=== PATIENT | female | born 1970 | race African-American/Black ===

== ENCOUNTER 2017-06-27 22:52 | Emergency (ER) | payer SELFPAY ==
[~2017-06-27] VITALS: Ht 167.6 cm; Wt 65.0 kg
[2017-06-28 03:15] LABS: BASOPHILS % 0.5 % (0.0-2.0); HEMATOCRIT. 36.4 % (36.0-48.0); HEMOGLOBIN. 12.6 g/dL (12.0-16.0); LYMPHOCYTES % 57.9 % (20.0-50.0); MEAN CORPUSCULAR HEMOGLOBIN 32.3 pg (28.0-32.0); MEAN CORPUSCULAR VOLUME 93.8 fL (81.0-99.0); MEAN PLATELET VOLUME 6.6 fl (7.4-10.4); MONOCYTES % 7.7 % (2.0-8.0); NEUTROPHILS % 32.9 % (40.0-76.0); PLATELET 341 x1000/uL (130-400); RED BLOOD CELL COUNT 3.88 mill/uL (4.2-5.4); RED CELL DISTRIBUTION WIDTH 13.4 % (11.6-14.6)
[2017-06-28 03:31] LABS: CARBON DIOXIDE 28 mEq/L (21-32); CHLORIDE 108 mEq/L (98-107)
[2017-06-28] MEDS: SODIUM CHLORIDE 0.9% 1,000 ML IV ONE (05:40)
[2017-06-28] MEDS: ONDANSETRON HCL 4MG/2ML VIAL IV STA (05:42)
[2017-06-28] MEDS: MORPHINE SULFATE 4 MG/ML CPJ (NOT FOR IM USE) IV STA (05:43)
[2017-06-28] MEDS: KETOROLAC 60MG/2ML VIAL IM ONE (05:48)
[2017-06-28 06:20] LABS: CLARITY URINE TURBID (CLEAR); COLOR URINE YELLOW (YELLOW); GLUCOSE URINE NEGATIVE (NEGATIVE); KETONES URINE NEGATIVE (NEGATIVE); LEUKOCYTE ESTERASE URINE 1+ (NEGATIVE); NITRITE URINE NEGATIVE (NEGATIVE); OCCULT BLOOD URINE NEGATIVE (NEGATIVE); PH URINE 5.5 (4.5-8.0); PROTEIN URINE TRACE (NEGATIVE); SPECIFIC GRAVITY URINE 1.023 (1.005-1.030)
[2017-06-28 07:06] VITALS: BP 115/61
== END 2017-06-28 07:20 | disposition home or self-care (01) ==
LOC: ER 23:01
DX: R10.2 Pelvic and perineal pain (principal); I10 Essential (primary) hypertension; F12.10 Cannabis abuse, uncomplicated; F17.200 Nicotine dependence, unspecified, uncomplicated; R11.2 Nausea with vomiting, unspecified
CPT/HCPCS: 36415; 76856; 80053; 81001; 81025; 83690; 85025; 96361; 96372; 96374; 96375; 99285; J1885; J2270; J2405; J7040; Z7610; J7030

== ENCOUNTER 2018-03-17 14:30 | Emergency (ER) | payer MEDICAID ==
[~2018-03-17] VITALS: Ht 160 cm; Wt 60.0 kg
[2018-03-17 16:26] VITALS: BP 128/98
== END 2018-03-17 16:27 | disposition home or self-care (01) ==
LOC: ER 14:30
DX: I10 Essential (primary) hypertension (principal); Z76.0 Encounter for issue of repeat prescription; F32.9 Major depressive disorder, single episode, unspecified; F12.10 Cannabis abuse, uncomplicated
CPT/HCPCS: 99283

== ENCOUNTER 2018-09-12 14:09 | Emergency (ER) | payer MEDICAID ==
[~2018-09-12] VITALS: Ht 162.6 cm; Wt 60.0 kg
[2018-09-12 15:09] LABS: CLARITY URINE CLEAR (CLEAR); COLOR URINE YELLOW (YELLOW); KETONES URINE NEGATIVE (NEGATIVE); LEUKOCYTE ESTERASE URINE NEGATIVE (NEGATIVE); NITRITE URINE NEGATIVE (NEGATIVE); OCCULT BLOOD URINE NEGATIVE (NEGATIVE); PH URINE 6.5 (4.5-8.0); PROTEIN URINE NEGATIVE (NEGATIVE); SPECIFIC GRAVITY URINE 1.001 (1.005-1.030); UROBILINOGEN URINE 0.2 E.U./dL (0.2-1.0)
[2018-09-12 15:24] LABS: *AMPHETAMINES SCREEN URINE NEGATIVE (NEGATIVE); *BARBITURATES SCREEN URINE NEGATIVE (NEGATIVE); METHADONE URINE SCREEN NEGATIVE (NEGATIVE); OPIATES URINE SCREEN NEGATIVE (NEGATIVE)
[2018-09-12 15:25] LABS: *BENZODIAZEPINES SCREEN URINE NEGATIVE (NEGATIVE); *COCAINE SCREEN URINE PRESUMTIVE POSITIVE (NEGATIVE); CANNABINOID URINE SCREEN NEGATIVE (NEGATIVE); PHENCYCLIDINE URINE SCREEN NEGATIVE (NEGATIVE)
[2018-09-12 16:02] LABS: BASOPHILS % 0.3 % (0.0-2.0); EOSINOPHILS % 0.1 % (0.0-5.0); HEMATOCRIT. 36.9 % (36.0-48.0); HEMOGLOBIN. 12.5 g/dL (12.0-16.0); LYMPHOCYTES % 16.5 % (20.0-50.0); MEAN CORPUSCULAR HEMOGLOBIN 32.7 pg (28.0-32.0); MEAN CORPUSCULAR VOLUME 96.9 fL (81.0-99.0); MEAN PLATELET VOLUME 7.8 fl (7.4-10.4); MONOCYTES % 7.8 % (2.0-8.0); NEUTROPHILS % 75.3 % (40.0-76.0); PLATELET 304 x1000/uL (130-400); RED BLOOD CELL COUNT 3.81 mill/uL (4.2-5.4); RED CELL DISTRIBUTION WIDTH 13.7 % (11.6-14.6)
[2018-09-12 16:08] LABS: PROTHROMBIN TIME 10.1 sec (9.1-11.1)
[2018-09-12 16:12] LABS: CHLORIDE 106 mEq/L (98-107)
[2018-09-12] MEDS ORDERED: ACETAMINOPHEN 325MG TABLET PO ONE (16:15)
[2018-09-12 16:21] LABS: ETHANOL BLOOD 250 mg/dL
[2018-09-12 18:32] VITALS: BP 118/72
== END 2018-09-12 19:24 | disposition home or self-care (01) ==
LOC: ER 14:30
DX: F10.229 Alcohol dependence with intoxication, unspecified (principal); F32.9 Major depressive disorder, single episode, unspecified; I10 Essential (primary) hypertension; F12.10 Cannabis abuse, uncomplicated; Y90.8 Blood alcohol level of 240 mg/100 ml or more
CPT/HCPCS: 36415; 70450; 73130; 80053; 80305; 81003; 81025; 85025; 85610; 93005; 99284; G0482

== ENCOUNTER 2019-07-07 18:37 | Emergency (ER) | payer MEDICAID ==
[~2019-07-07] VITALS: Ht 172.7 cm; Wt 65.0 kg
[2019-07-07 23:15] LABS: BASOPHILS % 0.6 % (0.0-2.0); HEMATOCRIT. 35.8 % (36.0-48.0); HEMOGLOBIN. 12.1 g/dL (12.0-16.0); LYMPHOCYTES % 37.2 % (20.0-50.0); MEAN CORPUSCULAR HEMOGLOBIN 32.5 pg (28.0-32.0); MEAN CORPUSCULAR VOLUME 96.7 fL (81.0-99.0); MEAN PLATELET VOLUME 7.8 fl (7.4-10.4); MONOCYTES % 7.8 % (2.0-8.0); NEUTROPHILS % 53.4 % (40.0-76.0); PLATELET 272 x1000/uL (130-400); RED BLOOD CELL COUNT 3.71 mill/uL (4.2-5.4); RED CELL DISTRIBUTION WIDTH 12.9 % (11.6-14.6)
[2019-07-07 23:18] LABS: CHLORIDE 106 mEq/L (98-107)
[2019-07-08 04:04] VITALS: BP 100/68
== END 2019-07-08 04:30 | disposition home or self-care (01) ==
LOC: ER 18:37
DX: M94.0 Chondrocostal junction syndrome [Tietze] (principal); I10 Essential (primary) hypertension; F32.9 Major depressive disorder, single episode, unspecified; F12.10 Cannabis abuse, uncomplicated
CPT/HCPCS: 36415; 71045; 80053; 83690; 84484; 85025; 93005; 99284; Z7610

== ENCOUNTER 2019-07-08 06:37 | Emergency (ER) | payer MEDICAID ==
[~2019-07-08] VITALS: Ht 170.2 cm; Wt 65.0 kg
[2019-07-08] MEDS ORDERED: KETOROLAC 60MG/2ML VIAL IM ONE (07:45)
[2019-07-08 12:20] VITALS: BP 115/62
== END 2019-07-08 12:53 | disposition home or self-care (01) ==
LOC: ER 06:37
DX: M79.601 Pain in right arm (principal); Z59.0 Homelessness
CPT/HCPCS: 96372; 99283; J1885

== ENCOUNTER 2020-10-21 02:30 | Inpatient (IN) | payer MEDICAID ==
[~2020-10-21] VITALS: Ht 167.6 cm; Wt 71.7 kg
[2020-10-21] MEDS ORDERED: ASPIRIN 81MG TABLET PO ONE (04:00)
[2020-10-21] MEDS ORDERED: NITROGLYCERIN OINT 1GM/INCH UDPKT TD ONE (04:00)
[2020-10-21 05:17] LABS: BASOPHILS % 0.6 % (0.0-2.0); EOSINOPHILS % 0.3 % (0.0-5.0); HEMOGLOBIN. 15.1 g/dL (12.0-16.0); LYMPHOCYTES % 33.1 % (20.0-50.0); MEAN CORPUSCULAR HEMOGLOBIN 30.9 pg (28.0-32.0); MEAN CORPUSCULAR VOLUME 92.4 fL (81.0-99.0); MEAN PLATELET VOLUME 8.7 fl (7.4-10.4); MONOCYTES % 5.1 % (2.0-8.0); NEUTROPHILS % 60.9 % (40.0-76.0); PLATELET 359 x1000/uL (130-400); RED BLOOD CELL COUNT 4.87 mill/uL (4.2-5.4); RED CELL DISTRIBUTION WIDTH 15.5 % (11.6-14.6)
[2020-10-21 05:22] LABS: CHLORIDE 101 mEq/L (98-107)
[2020-10-21] MEDS ORDERED: ACETAMINOPHEN 325MG TABLET PO PRN (10:00)
[2020-10-21] MEDS ORDERED: ONDANSETRON HCL 4MG/2ML INJ IV PRN (10:00)
[2020-10-21] MEDS: ENOXAPARIN 40MG/0.4ML SYR SUBCUT SCH (10:41)
[2020-10-21 12:00] VITALS: BP 97/58
[2020-10-21] MEDS ORDERED: POTASSIUM CHLORIDE 20MEQ TABLET SR PO SCH (13:00)
[2020-10-21] MEDS: ASPIRIN 325MG EC TABLET PO SCH (14:25)
[2020-10-21] MEDS: COLCHICINE 0.6MG TABLET PO SCH ×2 (14:25→21:37)
[2020-10-21 14:28] VITALS: BP 182/58
[2020-10-21 16:00] VITALS: BP 97/58
[2020-10-21 20:00] VITALS: BP 91/56
[2020-10-22] VITALS: BP 90/56
[2020-10-22 04:00] VITALS: BP 100/58
[2020-10-22 08:00] VITALS: BP 88/54
[2020-10-22] MEDS: ENOXAPARIN 40MG/0.4ML SYR SUBCUT SCH (08:46)
[2020-10-22] MEDS: COLCHICINE 0.6MG TABLET PO SCH ×2 (08:46→20:38)
[2020-10-22] MEDS: ASPIRIN 325MG EC TABLET PO SCH (08:46)
[2020-10-22] MEDS ORDERED: ASPIRIN 81MG TABLET PO SCH (09:00)
[2020-10-22 12:00] VITALS: BP 98/63
[2020-10-22] MEDS: NICOTINE 21MG PATCH TD SCH (12:04)
[2020-10-22 16:00] VITALS: BP 97/64
[2020-10-22 20:00] VITALS: BP 97/56
[2020-10-23] VITALS: BP 96/62
[2020-10-23 04:00] VITALS: BP 91/59
[2020-10-23] MEDS: ASPIRIN 325MG EC TABLET PO SCH (10:03)
[2020-10-23] MEDS: COLCHICINE 0.6MG TABLET PO SCH ×2 (10:04→20:50)
[2020-10-23] MEDS: ENOXAPARIN 40MG/0.4ML SYR SUBCUT SCH (10:07)
[2020-10-23] MEDS: NICOTINE 21MG PATCH TD SCH (10:07)
[2020-10-23 12:00] VITALS: BP 110/80
[2020-10-23 16:00] VITALS: BP 106/73
[2020-10-23] MEDS ORDERED: NICO-789 TD (18:43)
[2020-10-23] MEDS ORDERED: IBUP-2029 MT (18:43)
[2020-10-23 20:00] VITALS: BP 103/77
[2020-10-24 04:00] VITALS: BP 109/61
[2020-10-24 08:00] VITALS: BP 91/51
[2020-10-24] MEDS: ASPIRIN 325MG EC TABLET PO SCH (09:44)
[2020-10-24] MEDS: COLCHICINE 0.6MG TABLET PO SCH (09:44)
[2020-10-24] MEDS: NICOTINE 21MG PATCH TD SCH (09:45)
[2020-10-24] MEDS: ENOXAPARIN 40MG/0.4ML SYR SUBCUT SCH (09:45)
[2020-10-24 12:00] VITALS: BP 100/88
[2020-10-24 13:33] VITALS: BP 100/88
== END 2020-10-24 15:55 | disposition home or self-care (01) | DRG 207 ==
LOC: ER 02:30 → 7WST 05:37 → EDBEDREQ 05:39 → ENRESERV 09:47 → ER 11:30 → 5WST 10-22 22:30
PROVIDERS: ADMIT Internal Medicine; ATTEND Internal Medicine
DX: I31.9 Disease of pericardium, unspecified (principal); J98.4 Other disorders of lung; J84.10 Pulmonary fibrosis, unspecified; E87.6 Hypokalemia; F17.210 Nicotine dependence, cigarettes, uncomplicated; I10 Essential (primary) hypertension; R74.01 Elevation of levels of liver transaminase levels; F10.129 Alcohol abuse with intoxication, unspecified; Y90.9 Presence of alcohol in blood, level not specified; Z20.822 Contact with and (suspected) exposure to COVID-19; Z88.1 Allergy status to other antibiotic agents; Z79.1 Long term (current) use of non-steroidal anti-inflammatories (NSAID); Z79.899 Other long term (current) drug therapy; Z71.6 Tobacco abuse counseling
CPT/HCPCS: 36415; 71045; 80053; 83735; 83880; 84443; 84484; 85025; 85379; 93005; 93306; 99285; J1650; U0003

== ENCOUNTER 2021-11-06 20:46 | Emergency (ER) | payer MEDICAID ==
[~2021-11-06 20:46] MED LIST: IBUP-2029 MT; NICO-789 TD
== END 2021-11-06 21:36 | disposition left against medical advice (07) ==
LOC: ER 20:46
DX: Z53.21 Procedure and treatment not carried out due to patient leaving prior to being seen by health care provider (principal)

== ENCOUNTER 2021-11-06 23:10 | Emergency (ER) | payer MEDICAID ==
[~2021-11-06] VITALS: Ht 167.6 cm; Wt 73.0 kg
[2021-11-07 00:23] LABS: BASOPHILS % 0.3 % (0.0-2.0); EOSINOPHILS % 0.6 % (0.0-5.0); HEMATOCRIT. 42.1 % (36.0-48.0); LYMPHOCYTES % 45.3 % (20.0-50.0); MEAN CORPUSCULAR HEMOGLOBIN 30.5 pg (28.0-32.0); MEAN CORPUSCULAR VOLUME 91.5 fL (81.0-99.0); MEAN PLATELET VOLUME 7.9 fl (7.4-10.4); MONOCYTES % 5.3 % (2.0-8.0); NEUTROPHILS % 48.5 % (40.0-76.0); PLATELET 332 x1000/uL (130-400); RED CELL DISTRIBUTION WIDTH 13.4 % (11.6-14.6)
[2021-11-07 00:41] LABS: CHLORIDE 105 mEq/L (98-107)
[2021-11-07 04:10] VITALS: BP 119/86
[2021-11-07] MEDS ORDERED: ACETAMINOPHEN 325MG TABLET PO ONE (04:15)
== END 2021-11-07 04:59 | disposition home or self-care (01) ==
LOC: ER 23:37
DX: M54.50 Low back pain, unspecified (principal); D64.9 Anemia, unspecified; F41.9 Anxiety disorder, unspecified; F32.9 Major depressive disorder, single episode, unspecified; I10 Essential (primary) hypertension
CPT/HCPCS: 36415; 74176; 80053; 83690; 84484; 85025; 93005; 99285; A4217